=== PATIENT | male | born 1995 | race Caucasian/White ===

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

== ENCOUNTER 2018-02-23 15:14 | Emergency (ER) | payer OTHER ==
[2018-02-23 15:23] VITALS: BP 130/83; PULSE 86; TEMP 98; BMI 27.2
[2018-02-23] MEDS ORDERED: DIPHTH,PERTUSS(ACELL),TET 0.5 ML DISP.SYRIN IM ONE (15:23)
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
[2018-02-23] MEDS ORDERED: ACETAMINOPHEN 500 MG TABLET (FP) PO ONE (15:54)
[2018-02-23] MEDS ORDERED: ACETAMINOPHEN 500 MG TABLET (FP) ONE (15:55)
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
== END 2018-02-23 16:29 | disposition home or self-care (01) ==
LOC: JERFT 15:14
PROC: 3E0234Z Introduction of Serum, Toxoid and Vaccine into Muscle, Percutaneous Approach (ICD-10-PCS; principal; 2018-02-23)
DX: S80.02XA Contusion of left knee, initial encounter (principal); V43.52XA Car driver injured in collision with other type car in traffic accident, initial encounter; Y93.89 Activity, other specified; Y92.410 Unspecified street and highway as the place of occurrence of the external cause; S16.1XXA Strain of muscle, fascia and tendon at neck level, initial encounter
CPT/HCPCS: 73562-TC-LT-FY; 90715; 99281-25

== ENCOUNTER 2023-10-09 16:07 | Emergency (ER) | payer OTHER ==
[2023-10-09] MEDS ORDERED: KETOROLAC TROMETHAMINE 30 MG/1 ML VIAL IM ONE (16:20)
[2023-10-09] MEDS ORDERED: IBUPROFEN 600 MG TABLET (FP) PO ONE ×2 (16:37→16:55)
[2023-10-09] MEDS ORDERED: METHOCARBAMOL 500 MG TABLET PO ONE (16:37)
[2023-10-09 16:38] VITALS: BP 116/74; PULSE 82; RESP 20; TEMP 98.9; BMI 41.3
[2023-10-09] MEDS ORDERED: METHOCARBAMOL 500 MG TABLET ONE (16:55)
== END 2023-10-09 17:30 | disposition home or self-care (01) ==
LOC: FER 16:07
DX: R10.31 Right lower quadrant pain (principal); X50.1XXA Overexertion from prolonged static or awkward postures, initial encounter; Y93.64 Activity, baseball
CPT/HCPCS: 73502-TC-RT-FY; 81003; 99284-25